=== PATIENT | female | born 1960 | race Caucasian/White ===

== ENCOUNTER 2017-08-14 20:56 | Emergency (ER) | payer MEDICAID ==
[2017-08-14] MEDS ORDERED: Ondansetron 4 MG/2 ML SDV IVPUSH ONE (21:03)
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
[2017-08-14] MEDS: fentaNYL 100 MCG/2 ML SDV IVPUSH ONE (21:16)
[2017-08-14] MEDS ORDERED: Sodium Chloride 0.9% 10 ML Syringe FLUSH PRN (21:30)
[2017-08-14] MEDS: Prochlorperazine 10 MG/2 ML SDV IVPUSH ONE (21:55)
[2017-08-14] MEDS: Sodium Chloride 0.9% 80 ML IV SCH (22:12)
[2017-08-14] MEDS: Iopamidol 612 MG/ML 100 ML Bottle IV SCH (22:12)
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
== END 2017-08-15 00:10 ==
LOC: JP.ED 20:56
DX: S05.11XA Contusion of eyeball and orbital tissues, right eye, initial encounter (principal); E11.9 Type 2 diabetes mellitus without complications; Z79.4 Long term (current) use of insulin; V89.2XXA Person injured in unspecified motor-vehicle accident, traffic, initial encounter
CPT/HCPCS: 36415; 70450; 70486; 71260; 72125; 73060; 73090; 73610; 80053; 81001; 85025; 96374; 96375; 99291; G0480; J0780; J3010; J7030; Q9967

== ENCOUNTER 2018-01-02 13:50 | Emergency (ER) | payer MEDICAID ==
[2018-01-02] MEDS ORDERED: Sodium Chloride 0.9% 10 ML Syringe FLUSH PRN (14:30)
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
[2018-01-02] MEDS: HYDROmorphone 0.5 MG/0.5 ML Syringe IVPUSH ONE ×2 (15:02→16:14)
[2018-01-02] MEDS: Acetaminophen/oxyCODONE 325-5 MG Tab PO ONE (17:22)
== END 2018-01-02 19:03 | disposition home or self-care (01) ==
LOC: JP.ED 13:50
DX: S00.12XA Contusion of left eyelid and periocular area, initial encounter (principal); J45.909 Unspecified asthma, uncomplicated; E11.9 Type 2 diabetes mellitus without complications; Z91.030 Bee allergy status; Z79.4 Long term (current) use of insulin; Y04.8XXA Assault by other bodily force, initial encounter
CPT/HCPCS: 70450; 70486; 72125; 96374; 96376; 99285; A9270; J1170